=== PATIENT | female | born 1965 | race Two or more races ===

== ENCOUNTER 2017-03-25 10:57 | Emergency (ER) | payer MEDICAID, OTHER ==
[~2017-03-25] VITALS: Ht 165.1 cm; Wt 68.0 kg
[2017-03-25] MEDS ORDERED: cloNIDine HCL 0.1 MG TAB PO ONE (11:30)
[2017-03-25] MEDS ORDERED: traMADol HCL 50 MG TAB PO ONE (11:45)
[2017-03-25 13:14] VITALS: BP 133/84
== END 2017-03-25 13:25 | disposition home or self-care (01) ==
LOC: ER 10:57
DX: S16.1XXA Strain of muscle, fascia and tendon at neck level, initial encounter (principal); S46.911A Strain of unspecified muscle, fascia and tendon at shoulder and upper arm level, right arm, initial encounter; M19.90 Unspecified osteoarthritis, unspecified site; I10 Essential (primary) hypertension; E07.9 Disorder of thyroid, unspecified; Z90.710 Acquired absence of both cervix and uterus; Y08.89XA Assault by other specified means, initial encounter; Y93.89 Activity, other specified; Y99.8 Other external cause status; Y92.89 Other specified places as the place of occurrence of the external cause
CPT/HCPCS: 72040; 73030; 93005